=== PATIENT | male | born 1950 | race Caucasian/White ===

== ENCOUNTER → 2020-03-20 12:43 | Outpatient (CLI) | payer MEDICARE, OTHER, SELFPAY ==
--- NOTE | 2020-03-20 | DI.MRI.S_ITS ---
PROCEDURE: MR ANKLE RT WO CON INDICATIONS: Achilles tendinitis, right leg TECHNIQUE: Noncontrast sagittal T1 spin echo and T2 fast spin echo with fat saturation, axial proton density fast spin echo and T2 fast spin echo with fat saturation, coronal T1 spin echo and T2 fast spin echo with fat saturation through the ankle/hindfoot. COMPARISON: [facility] [place], [place], XR FOOT 1 OR 2 VIEWS RIGHT, 11/14/2019, 9:34. FINDINGS: Image quality: Excellent. Bones and joints: No bone marrow contusions or fractures. No hindfoot coalitions. No osteochondral injuries of the talar dome. Osteophytic changes involving tibiotalar joint are seen with suggestion of tiny osteochondral lesion involving anterior periphery of distal tibial plafond measures 3 mm in size. No pathologic joint effusions. Medial structures: The posterior tibialis, flexor digitorum longus, and flexor hallucis longus tendons are intact. The posterior tibial neurovascular bundle appears normal within the tarsal tunnel, without extrinsic mass effect. The deep layer (anterior and posterior tibiotalar ligaments) and superficial layer (tibionavicular, tibiospring, and tibiocalcaneal ligaments) of the deltoid ligament appear normal. The spring ligament components (superomedial calcaneonavicular, medioplantar oblique calcaneonavicular, and inferoplantar longitudinal ligaments) are intact. Lateral structures: The anterior talofibular, calcaneofibular, and posterior talofibular ligaments appear intact. More superiorly, the anterior and posterior tibiofibular ligaments appear intact, as is the intermalleolar ligament. The tibiofibular syndesmosis is normal in width at 2 mm or less. The peroneus longus and brevis tendons demonstrate normal location and morphology. Adjacent bony peroneal tubercle and retrotrochlear prominence are normal in size. The sinus tarsi demonstrates normal fatty signal, without edema, fibrosis, or cyst formation. Visualized sinus tarsi components (cervical ligament, interosseous talocalcaneal ligament, roots of the inferior extensor retinaculum) appear normal. The calcaneonavicular and calcaneocuboid components of the bifurcate ligament appear intact. The dorsal calcaneocuboid ligament appears intact. Anterior structures: The tibialis anterior, extensor hallucis longus, and extensor digitorum longus tendons appear intact. The dorsal talonavicular ligament appears intact. Posterior and plantar structures: Attenuated appearing distal Achilles tendon at its insertion on the posterior calcaneus is seen with adjacent soft tissue edema and swelling suggestive of tendinosis and low to moderate grade partial-thickness tear. No full-thickness Achilles tendon rupture.. Medial and lateral bands of the plantar fascia are of normal thickness. No abductor digiti quinti muscle atrophy to suggest Moreno neuropathy. IMPRESSION: 1. Tendinosis and low to moderate grade partial-thickness tear involving distal 2 cm segment of Achilles tendon at its insertion on posterior calcaneus. No full-thickness Achilles tendon rupture. 2. No other tendon or ligament pathology. 3. Mild tibiotalar joint osteophyte is with suggestion of tiny 3 mm osteochondral lesion involving anterior periphery of distal tibial plafond. No osteochondral lesion in talar dome is seen. No fracture or dislocation. Dictated by: Delbert Guevara M.D. on 03/20/2020 at 16:05 Approved by: Delbert Guevara M.D. on 03/20/2020 at 17:04
== END ==
PROVIDERS: PCP Internal Medicine; Referring Provider Orthopaedic Surgery Foot and Ankle Surgery; Visit Provider Orthopaedic Surgery Foot and Ankle Surgery
DX: M76.61 Achilles tendinitis, right leg (principal); S86.011A Strain of right Achilles tendon, initial encounter
CPT/HCPCS: 73721

== ENCOUNTER → 2020-04-23 10:16 | Outpatient (CLI) | payer MEDICARE, OTHER, SELFPAY | PROVIDERS: PCP Internal Medicine; Referring Provider Orthopaedic Surgery Foot and Ankle Surgery; Visit Provider Orthopaedic Surgery Foot and Ankle Surgery | DX: Z01.818 Encounter for other preprocedural examination (principal); Z11.59 Encounter for screening for other viral diseases; Z01.812 Encounter for preprocedural laboratory examination | CPT/HCPCS: 87635; 93005; 93010 ==

== ENCOUNTER → 2020-04-23 11:21 | Outpatient (CLI) | payer MEDICARE, OTHER, SELFPAY ==
[2020-04-24 20:36] LABS: COVID19 Sendout Not Detected (Not Detect)
== END ==
PROVIDERS: PCP Internal Medicine; Visit Provider Physician Assistant
DX: Z01.812 Encounter for preprocedural laboratory examination (principal)
CPT/HCPCS: 87635

== ENCOUNTER 2020-04-26 05:45 | Day surgery (SDC) | payer MEDICARE, OTHER, SELFPAY ==
[2020-04-23 12:05] VITALS: BMI 27.6
[2020-04-26] VITALS (8 sets, daily range): BP systolic 118–139; BP diastolic 62–90; PULSE 54–78; RESP 15–16; TEMP 36.2–36.7; O2SAT 95–100; BMI 27.1
--- NOTE | 2020-04-26 07:10 | P.HP_ITS ---
History of Present Illness History of Present Illness Date Patient Seen: 04/26/20 Time Patient Seen: 07:10 Chief complaint: [id number] RIGHT Narrative: It in the back where the Achilles inserts. Going on for greater than 6 months. His heel is sort touch on the right side. It increases with walking and has start-up pain when he gets up from resting. He has been using heel lifts and avoiding shoes with a heel counter but continues to have pain. He has been working hard on his stretching. Continues to have pain in the right Achilles that is greatly affecting his life. 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 He has failed conservative treatment. He would like to proceed with surgery. Patient History Medical History Anxiety (Acute) Heel pain, bilateral (Acute) HLD (hyperlipidemia) (Acute) Pseudogout (Acute) Tendinitis (Acute) Surgical History No history of previous surgery (Acute) Family & Social History Social History: household members spouse Tobacco & Substance use: Smoking Status Never smoker alcohol intake current alcohol intake frequency 0-2 drinks per day Substance Use Type does not use Meds Home Medications and Allergies Home Medications Medication Instructions Recorded Confirmed Type citalopram 10 mg PO DAILY 04/23/20 04/26/20 History colchicine 0.6 mg PO DAILY PRN 04/23/20 04/23/20 History rosuvastatin 40 mg PO DAILY 04/23/20 04/26/20 History Allergies Allergy/AdvReac Type Severity Reaction Status Date / Time No Known Drug Allergies Allergy Verified 04/23/20 12:11 Review of Systems Review of Systems ROS: Yes All systems reviewed with the patient and are negative except as otherwise documented Exam Vital Signs (past 8 hours): - 04/26/20 06:41 Temperature 97.8 F Pulse Rate 58 L Respiratory Rate 16 Blood Pressure 139/80 Pulse Oximetry 100 Oxygen Delivery Method Room Air Narrative Exam Narrative: Vital signs stable. The patient is no acute distress normal affect fully oriented. Heart exam reveals regular rhythm. Respiratory exam was clear to auscultation bilaterally. Abdomen soft nontender. No skin lesions. Full weight-bearing no assistive devices. Right upper and left upper extremities show grossly normal alignment range of motion strength and stability. Right lower extremity shows grossly normal alignment there is a Kumar's deformity. Tenderness over the Achilles tendon and posterior heel. No wounds. Achilles tendon is palpable. Good dorsiflexion plantar flexion. Able to dorsiflex 15? with the knee straight 40? plantar flexion. Stable anterior drawer and talar tilt. Left lower extremity shows grossly normal alignment range of motion strength and stability no swelling atrophy or fusion. Neurologic sensation intact to light touch throughout the upper and lower extremities. Coordination Assessment & Plan Assessment & Plan narrative: Right insertional Achilles tendinitis lower extremity. Patient has right insertional Achilles tendonitis he has calcific changes the Kumar's deformity on x-ray. If persistent symptoms despite greater than 6 months of non operative treatment. We discussed options including surgical procedure. He would like to proceed with surgery. We discussed surgical was seizure which is debridement of the tendon and reattac hment. Based on MRI do not believe he will require tendon transfer. He also has good mobility and dorsiflexion I do not plan a gastroc procedure separately. Risks and benefits of surgery were discussed today. The risks and benefits of the procedure have been discussed with the patient even opportunity to ask questions. The risks of surgery include but are not limited to infection, malunion, nonunion, persistence of pain, damage to nerves and blood vessels, posttraumatic arthritis, DVT, PE, cardiopulmonary complications and . The patient expressed a thorough understanding of the risks and benefits of surgery and has elected to proceed. Consent was signed in the office today. COVID-19 COVID-19 status: Negative Result date/Date tested (Pos, Neg/Pending): 04/23/20 Time Spent With Patient Time with patient: less than 15 minutes Quality VTE Deep Vein Thrombosis/Pulmonary Embolism Present on Admission: No
--- NOTE | 2020-04-26 07:20 | P.OP_ITS ---
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 He has been indicated for Achilles tendon insertional debridement and repair. The risks and benefits of the procedure have been discussed with the patient even opportunity to ask questions. The risks of surgery include but are not limited to infection, malunion, nonunion, persistence of pain, damage to nerves and blood vessels, posttraumatic arthritis, DVT, PE, cardiopulmonary complications and . The patient expressed a thorough understanding of the risks and benefits of surgery and has elected to proceed. Consent was signed today. Surgeon: Sruthi Watts Click Yes if Unassisted: Yes Anesthesia Type: General and Peripheral nerve block Operative Notes Findings: Tendinosis involving the 25% of the tendon distally just proximal to the insertion. Extensive calcifications and bony prominence at the Achilles insertion. Tendinosis was debrided. Greater than 50% of the good quality tendon remained of for FHL transfer indicated. Patient was able to reach 15? of dorsiflexion no no gastroc lengthening was done. Care was taken to maintain the medial and lateral most extents of the tendon insertion at the anatomic location. Insertional tear was then completed after Kumar excision using the Arthrex Speed Bridge Closure Type: primary Specimen(s): none sent Prosthetic devices, grafts, tissues, transplants, or devices: Arthrex speed bridge Estimated Blood Loss (mL): 5 Blood products transfused: none Tourniquet time (min): 59 Procedure in detail: The patient was seen in the preoperative area and the site of surgery was marked, informed consent was confirmed, final questions were answered. The patient was then brought to the block room by the anesthesia team and a regional block was placed for postoperative pain control. Patient was then brought to the operating room. General endotracheal anesthesia was obtained. Tourniquet was placed and well-padded on the upper aspect of the right thigh. Patient was then positioned into the prone position on the operative table. All bony prominences were well padded. An SCD was placed on the non operative leg. The operative leg was then prepped and draped in the standard sterile fashion. A formal time-out procedure was performed confirming the patient, side, site of surgery, allergies and presence of informed consent and administration of appropriate preoperative antibiotics. All were in agreement. Implants were available and in the room. A midline incision over the distal Achilles tendon insertion and heel was drawn. Exsanguination with the Esmarch was performed and then the tourniquet was elevated to 250 mm of mercury and stayed there for 59 minutes. A central midline tendon splitting approach was performed. Full-thickness flaps were developed. The tendon was detached from the calcaneus into medial and lateral limbs and each tendon limb was noted to have moderate fibrosis in the distal 3 cm. The far lateral and medial edges of the tendon were left intact to recreate the footprint. Fibrosis and the tendon was sharply excised with a 15 blade. This did not consist of more than 50% of the bulk of the tendon so it was decided that an FHL transfer would not be needed. Additionally the paratenon layer was carefully isolated from the tendon for later repair. Utilizing careful no-touch technique to retract the tendon the Kumar deformity was exposed. This was resected using the saw and then finished with the osteotome under fluoroscopic guidance. The edges were chamfered and smoothed with the power rasp. A retrocalcaneal bursectomy was performed. The Arthrex Speed Bridge system was opened. The 2 proximal 4.75 anchors were placed into the calcaneus approximately 1 cm proximal to the Achilles far distal insertion. The FiberTape limbs were taken out from deep to superficial through the tendon and the additional FiberWire sutures were also brought up through the tendon for additional points of fixation. This same procedure was performed for both the medial and lateral limbs. Once this was completed the FiberWire horizontal mattress style suture was tied down to establish the tendon tension and a spot weld. Following this the site of the distal row swivel locks was determined and approximately 1 cm distal from the proximal row just distal to the tendon insertion. This was marked out on the calcaneus drilled and then tapped in the standard fashion. One blue and 1 white limb from each proximal anchor were threaded through the SwiveLock and fixed distally. This was measured and then marked for tension in the standard fashion placing the peek tip at the hole and marking at the suture according to the black line stacie. This reestablished the footprint with excellent compression and tension. The wound was irrigated. Left over 2. FiberWire was used to repair the central tendon split. The repair was noted to have excellent tension and reapproximation without any prominent edges or sutures. The ankle was able to be passively dorsiflexed to adequate range of motion therefore no gastroc lengthening was done. Allen test was intact. The wound was irrigated thoroughly. This tourniquet was released and hemostasis achieved. The fascia and paratenon were closed with 3 0 PDS suture. The skin was closed subcutaneously with 4 0 Monocryl and then 3 O nylon in the skin. A bulky dressing and splint was applied and gravity equinus. A bulky Parisi dressing material and ABD pads were used. Patient was woken from anesthesia and taken to recovery room in good condition. There were no immediate complications from this procedure. All counts were correct. Complications: none Post-operative Condition: stable Disposition: PACU Plan for aftercare: Nonweightbearing in the splint. Elevate above the heart level. Will begin taking aspirin 325 mg daily for DVT prophylaxis or alternatively 4 baby aspirin. Follow-up in 2 weeks for wound check. At that time will go into a boot with heel left and will start progressive weight- bearing if the incision is appropriately healed
[2020-04-26] MEDS: LACTATED RINGERS 1,000 ML 42 ML IV ×2 (07:35→09:16)
[2020-04-26] MEDS: CEFAZOLIN 2 GM/100 ML FROZ.PIGGY IV (08:05)
--- NOTE | 2020-04-26 08:30 | SUR.OPER ---
Prone on padded OR bed, head in foam head support, gel chest rolls, gel pad under knees, blankets under lower legs, toes free of pressure, arms secured on padded arm boards at <90 degrees abduction. Safety belt at thigh.
[2020-04-26] MEDS: BUPIVACAINE 0.25% W/ EPI 30 ML VIAL INJ (08:40)
--- NOTE | 2020-04-26 08:48 | PM.PROC.1 ---
Procedures Date/Time Date of procedure: 04/26/20 Time of procedure: 07:45 General Procedure description: Ultrasound guided popliteal sciatic nerve block for post op pain control after right achilles repair by Dr. Watts. Risk and benefits of procedure discussed with patient. ASA monitoring applied to patient. Oxygen given via nasal cannula. 2 mg Versed and 100 mcg fentanyl given for procedural sedation. Skin site was prepped with chlorhexidine and allowed to fully dry. Sterile gloves, mask, hat and probe cover were used to maintain sterility. 2% lidocaine and 30ga needle was used to make a small skin wheal at needle insertion site. Under ultrasound guidance, a 21ga 100mm Pajunk needle was directed near the division of the sciatic nerve into tibial and peroneal nerve in the popliteal fossa (lateral approach). Patient reported no parasthesias. After negative aspiration, 20 mL 0.5% ropivicaine and 10mg dexamethasone were injected around sciatic nerve. Patient tolerated procedure well.
[2020-04-26] MEDS: fentaNYL 100 MCG/2 ML INJ IV ×2 (10:02→10:07)
[2020-04-26] MEDS: OXYCODONE/ACETAMINOPHEN 5/325 TABLET 1 TAB PO (10:15)
== END 2020-04-26 11:30 | disposition home or self-care (01) ==
PROVIDERS: PCP Internal Medicine; Referring Provider Internal Medicine; Visit Provider Orthopaedic Surgery Foot and Ankle Surgery
PROC: (CPT 27654; principal; 2020-04-26 07:45)
DX: M76.61 Achilles tendinitis, right leg (principal); M92.61 Juvenile osteochondrosis of tarsus, right ankle; E78.5 Hyperlipidemia, unspecified; F32.9 Major depressive disorder, single episode, unspecified; R79.89 Other specified abnormal findings of blood chemistry; M11.80 Other specified crystal arthropathies, unspecified site; M10.9 Gout, unspecified
CPT/HCPCS: 27654; 28100; J0690; J1100; J2250; J2405; J2704; J3010